=== PATIENT | male | born 2000 | race African-American/Black ===

== ENCOUNTER → 2018-11-23 | Outpatient (CLI) | payer OTHER ==
--- NOTE | 2018-11-23 14:54 | Diagnostic Imaging Report ---
INDICATION: 3 days post fall, pain. TECHNIQUE: Single view hand 2 views right thumb 10:06 AM. CORRELATION STUDY: None FINDINGS: Osseous structures of the right hand intact. Alignment anatomic. Joint space maintained. Dedicated imaging of the right thumb also has an unremarkable appearance. IMPRESSION: 1. Negative for acute bony about the right hand with attention to the thumb. Dictated by: Dictated on workstation # [id number]
== END ==
LOC: RAD FS 10:00
PROVIDERS: ATTEND Nurse Practitioner
DX: M79.644 Pain in right finger(s) (principal); W19.XXXA Unspecified fall, initial encounter
CPT/HCPCS: 73140